=== PATIENT | male | born 2005 | race Caucasian/White ===

== ENCOUNTER 2025-01-19 20:04 | Emergency (ER) | payer OTHER, SELFPAY ==
[2025-01-19 20:27] VITALS: BP 117/63; PULSE 61; TEMP 37.1; O2SAT 97; BMI 28.1
--- OUTSIDE RECORDS SUMMARY | 2025-01-19 21:07 | XMS_ITS | Clinical Summary ---
Author Organization [facility] Address [address] [place] [id number] Care Team Providers Care Farmer [employer] Name Role Phone EidLatrell Oleg Primary Care Provider [phone] Allergies No known active allergies Medications ibuprofen (MOTRIN) 600 mg tablet Take 1 tablet by mouth every 6 hours as needed for pain. 15 tablet 12/24/2020 Active Active Problems Problem Noted Date Diagnosed Date Warts 09/26/2013 Social History Tobacco Use Types Packs/Day Years Used Date Smoking Tobacco: Never Alcohol Use Standard Drinks/Week Comments Not Asked 0 (1 standard drink = 0.6 oz pur e alcohol) Area Deprivation Index Answer Date Akash rded National Score (1-100), lower number is lower ri sk Not on file 05/01/2020 State Score (1-10), lower number is lower risk N ot on file 05/01/2020 Data from: https://www.neighborhoodatlas.medicine.[facility].edu/. Last address used for calculation Not on file 05/01/2020 Sex and Gender Information Value Date Recorded Sex Assigned at Not on file Legal Sex Male 10:00 AM EST Gender Identity Not on file Sexual Orientation Not on file Last Filed Vital Signs Vital Sign Reading Time Taken Comments Blood Pressure 117/78 12/24/2020 4:48 PM EDT Pulse 79 12/24/2020 4:48 PM EDT Temperature 36.3 C (97.4 F) 12/24/2020 3:47 PM EDT Respiratory Rate 20 12/24/2020 4:48 PM EDT Oxygen Saturation 97% 12/24/2020 4:48 PM EDT Inhaled Oxygen Concentration - - Weight 94.8 kg (208 lb 15.9 oz) 12/24/2020 3:47 PM EDT Height 172.7 cm (5' 8 ) 12/24/2020 3:47 PM EDT Body Mass Index 31.78 12/24/2020 3:47 PM EDT Plan of Treatment Health Maintenance Due Date Last Done Comments Peds To Adult Transition Ini tial Discussion 2015 Peds To Adult Transition Rosaura ual Assessment 2017 Meningococcal B Vaccine (2 o f 2 - Bexsero SCDM 2-dose series) 03/28/2020 09/26/2019 Anxiety Screening 2021 Depression Screening 2021 HIV Screening 2021 Hepatitis C Screening 2021 DTaP,Tdap,Td Vaccine (7 - Td or Tdap) 12/27/2024 12/27/2014, 01/20/2007, 10/28/2005, Additional history exists Influenza Vaccine (#1) 2025 Hepatitis B Vaccine Completed 2003, 2003, 2003 HPV Vaccine Completed 07/02/2015, 12/2014, 12/27/2014 Insurance BLUE CARD PPO OOS Member Subscriber Plan / Payer (Ef fective 2020-Present) Name:KRYS OLVERA Relation to Subscriber:Child Name:Anuradha Louis Date of :1979 (Home) Address: [address] [place] [address] Payer ID:[id number] (NAIC) Type:PPO Address: [facility] [id number] MEDICAID Care Teams Farmer D[employer] Crops Relationship Specialty Start Date End Date Latrell Eid PCP - General Pediatrics 12/21/12
--- OUTSIDE RECORDS SUMMARY | 2025-01-19 21:07 | XMS_ITS | Clinical Summary ---
Author Organization [facility] Address [address], [address] [place] [address] Care Team Providers Care Family Life Counselor Name Role Phone Latrell Eid MD Primary Care Provider [phone] Allergies No known active allergies Medications ibuprofen (ADVIL;MOTRIN) 600 MG tabletIndications: Injury of right thumb, initial encounter,Sprain of right thumb, unspecified site of finger, initial encounter Take 1 tablet by mouth every 6 hours as needed for Pain 20 tablet 01/04/20 20 Active Additional Information Patient not taking.Reported on 02/08/2023 brompheniramine-ps eudoephedrine-DM 2-30-10 MG/5ML syrupIndications:V iral URI Take 5 mLs by mouth 4 times daily as needed for Congestion or Cough 200 mL 02/09/20 23 Active Additional Information Patient not taking.Reported on 04/06/2023 ondansetron (ZOFRAN-ODT) 4 MG disintegrating tablet Take 1 tablet by mouth 3 times daily as needed for Nausea or Vomiting 20 tablet 04/06/20 23 Active ketorolac (TORADOL) 10 MG tablet Take 1 tablet by mouth every 6 hours as needed for Pain 20 tablet 04/06/20 23 Active Active Problems No known active problems Immunizations Immunization Administration Dates Next Due COVID-19, MODERNA XI knowles r, Primary or Immunocompromised, (age 12y+), IM, 100 mcg/0.5mL 05/22/2021,04/24/2021 DTaP vaccine 01/20/2007, 6,2003,2003,2003 DTaP, INFANRIX, (age 6w-6y), IM, 0.5mL 03/06/2005 HPV, GARDASIL 9, (age 9y-45y ), IM, 0.5mL 07/02/2015,02/28/2015,12/27/2014 Hep A, HAVRIX, VAQTA, (age 1 2m-18y), IM, 0.5mL 10/02/2011,07/17/2010 Hep B, ENGERIX-B, RECOMBIVAX -HB, (age - 19y), IM, 0.5mL 2003 Hep B/Hib (Comvax) 2003,2003 Hib PRP-OMP, PEDVAXHIB, (age 2m-6y, Adlt Risk), IM, 0.5mL 2003,2003 Hib vaccine 02/09/2004,2003 Poliovirus, IPOL, (age 6w+), SC/IM, 0.5mL 03/02/2008,2003,2003,2002 Social History Tobacco Use Types Packs/Day Years Used Date Smoking Tobacco: Never Smokeless Tobacco: Never Tobacco Cessation:Counseling Given: Yes Alcohol Use Standard Drinks/Week Comments Yes 0 (1 standard drink = 0.6 oz pur e alcohol) OCCASIONALLY AUDIT-C Answer Date Recorded Q1: How often do you have a drink containing alcohol? Never 04/06/2023 Q2: How many drinks containi ng alcohol do you have on a typical day when you are drinking? Patient does not drink Q3: How often do you have si x or more drinks on one occasion? Never 04/06/2023 Overall Financial Resource Strain (CARDIA) Answe r Date Recorded How hard is it for you to pa y for the very basics like food, housing, medical care, and heating? Not hard at all 02/08/2023 PHQ-2 Answer Date Recorded PHQ-9 Total Score 0 02/08/2023 Hunger Vital Sign Answer Date Recorded Within the past 12 months, y ou worried that your food would run out before you got the money to buy more. Never true 02/09/20 23 Within the past 12 months, t he food you bought just didn't last and you didn't have money to get more. Never true 02/08/2023 PRAPARE - Transportation Answer Date Re corded Lack of Transportation (Medical) Not on file 02/08/2023 In the past 12 months, has l ack of transportation kept you from meetings, work, or from getting things needed for daily living? No 02/08/2023 Housing Stability Vital Sign Answer Masoud e Recorded Unable to Pay for Housing in the Last Year Not o n file 02/08/2023 Number of Places Lived in the Last Year Not on f ile 02/08/2023 In the last 12 months, was t here a time when you did not have a steady place to sleep or slept in a [place] [facility] [place] (including now)? No 02/08/2023 Food Insecurity Answer Date Recorded Within the past 12 months, y ou worried that your food would run out before you got the money to buy more. 1 02/08/2023 Within the past 12 months, t he food you bought just didn't last and you didn't have money to get more. 1 02/08/2023 Interpersonal Safety Domain Source: IP Abuse Scr eening Answer Date Recorded Read-Only, Retired: Physical Abuse Denies 04/06/2023 Read-Only, Retired: Verbal Abuse Denies 04/06/2023 Read-Only, Retired: Emotional abuse Denies 04/06/2023 Read-Only, Retired: Financial Abuse Denies 04/06/2023 Read-Only, Retired: Sexual abuse Denies 04/06/2023 Sex and Gender Information Value Date Recorded Sex Assigned at Not on file Legal Sex Male 3:59 AM EST Gender Identity Not on file Sexual Orientation Not on file Last Filed Vital Signs Vital Sign Reading Time Taken Comments Blood Pressure 135/76 04/06/2023 7:27 PM EST Pulse 94 04/06/2023 7:27 PM EST Temperature 37.9 C (100.3 F) 04/06/2023 7:27 PM EST Respiratory Rate 17 04/06/2023 7:27 PM EST Oxygen Saturation 98% 04/06/2023 7:27 PM EST Inhaled Oxygen Concentration - - Weight 102.1 kg (225 lb) 04/06/2023 7:49 PM EST Height 175.3 cm (5' 9 ) 04/06/2023 7:49 PM EST Body Mass Index 33.23 04/06/2023 7:49 PM EST Plan of Treatment Health Maintenance Due Date Last Done Comments Hepatitis C screen 2021 COVID-19 Vaccine ( season) 2024 05/22/2021, 04/24/2021 Depression Screen 02/09/2024 02/08/2023 Flu vaccine (#1) 12/22/2024 04/03/2009 DTaP/Tdap/Td vaccine (7 - Td or Tdap) 12/27/2024 12/27/2014, 01/20/2007, 10/28/2005, Additional history exists Hepatitis B vaccine Completed 2003, 2003, 2003 Hib vaccine Completed 02/09/2004, 07/23, 2003, Additional history exists Pneumococcal 0-49 years Vaccine Aged Out 02/09/2004, 2003, 2003 No longer eligible based on patient's age to complete this topic Varicella vaccine Completed 10/28/2005, 04/07/2004 Measles,Mumps,Rubella (MMR) vaccine Discontinued 01/20/2007, 02/09/2004 Polio vaccine Completed 03/02/2008, 07/23, 2003, Additional history exists Hepatitis A vaccine Completed 10/02/2011, 1 HPV vaccine Completed 07/02/2015, 12/2014, 12/27/2014 HIV screen Completed 09/26/2019, 08/05/2017 Meningococcal (ACWY) vaccine Completed 09/26/2019, 12/27/2014 Meningococcal B vaccine Completed 12/25/2019, 09/25 Procedures Procedure Name Priority Date/Time Associated Diagnosis Comments HIV-1,2 COMBO AG/AB BY IZABEL REFLEXIVE PANEL Routine 09/26/2019 12:12 PM EDT from Last 3 Months or Most Recently Relevant to Health Maintenance Results * HIV-1,2 Combo Ag/Ab By IZABEL Reflexive Panel (09/26/2019 12:12 PM EDT) HIV 1,2 Combo Antigen/Antibod y Negative Negative 09/27/2019 7:30 PM EDT [facility] Comment: The specimen was non-reactive for HIV-1 and HIV-2 antibodies, and p24 antigen. Based on this non-reactive screen result, further reflexive testing was not indicated and was, therefore, not performed INTERPRETIVE INFORMATION: HIV-1,2 Combo Ag/Ab EIA, w/Reflex This assay should not be used for blood donor screening, associated re-entry protocols, or for screening Human Cells, Tissues, and Cellular and Tissue-Based Products (HCT/P). Performed by [facility], [address] [place] [id number] [email or web address], Oli Clifton MD, Lab. Director 09/26/2019 12:1 2 PM EDT 09/26/2019 1:15 PM EDT us Latrell Eid MD IMMUNOLOGY ORDERABLES Final Re sult [facility] [address] [place], [place] [address] [phone] [facility] [address] [place], [place] [address] [phone] from Last 3 Months or Most Recently Relevant to Health Maintenance Insurance BCBS OUT OF STATE Care Teams Family Life Counselor Relationship Specialty Start Date End Date Latrell Eid MD PCP - General 04/15/15
--- OUTSIDE RECORDS SUMMARY | 2025-01-19 21:07 | XMS_ITS | Encounter Summary ---
Author Organization [facility] Address [address] [place] [address] Phone Care Team Providers Care Staff Training And Development Manager Name Role Phone Latrell Eid MD Primary Care Provider [phone] Encounter Details Date Type Department Care Team (Late st Contact Info) Description 01/24/2023 Patient Risk Score ACO Care Management [address] [place] [address] Social History Tobacco Use Types Packs/Day Years Used Date Smoking Tobacco: Never Assessed Sex and Gender Information Value Date Recorded Sex Assigned at Not on file Legal Sex Male 9:30 PM EST Gender Identity Not on file Sexual Orientation Not on file documented as of this encounter Plan of Treatment Not on file documented as of this encounter Visit Diagnoses Not on filedocumented in this encounter Care Teams Staff Training And Development Manager Relationship Specialty Start Date End Date Latrell Eid MD PCP - General 10/06/11 documented as of this encounter
--- OUTSIDE RECORDS SUMMARY | 2025-01-19 21:07 | XMS_ITS | Encounter Summary ---
Author Organization [facility] Address [address] [place] [address] Phone Care Team Providers Care Supervisor [employer] Name Role Phone Latrell Eid MD Primary Care Provider [phone] Encounter Details Date Type Department Care Team (Late st Contact Info) Description 11/23/2022 Patient Risk Score ACO Care Management [address] [place] [address] Social History Tobacco Use Types [...] on filedocumented in this encounter Care Teams Supervisor [employer] Relationship Specialty Start Date End Date Latrell Eid MD PCP - General 10/06/11 documented as of this encounter
--- OUTSIDE RECORDS SUMMARY | 2025-01-19 21:07 | XMS_ITS | Clinical Summary ---
Author Organization [facility] Address [address] [place] [address] Phone Care Team Providers Care Boiler Tenders Supervisor Name Role Phone Latrell Eid MD Primary Care Provider [phone] Social History Tobacco Use Types Packs/Day Years Used Date Smoking Tobacco: Never Assessed Sex and Gender Information Value Date Recorded Sex Assigned at Not on file Legal Sex Male 9:30 PM EST Gender Identity Not on file Sexual Orientation Not on file Last Filed Vital Signs Vital Sign Reading Time Taken Comments Blood Pressure 125/70 12/25/2019 9:04 AM EDT Pulse 80 09/26/2019 10:15 AM EDT Temperature - - Respiratory Rate - - Oxygen Saturation - - Inhaled Oxygen Concentration - - Weight 101 kg (222 lb 12.8 oz) 12/25/2019 9:04 A M EDT Height 173.2 cm (5' 8.2 ) 12/25/2019 9:04 AM EDT Body Mass Index 33.68 12/25/2019 9:04 AM EDT Plan of Treatment Health Maintenance Due Date Last Done Comments HIV Screening 2003 Lipid Panel 2003 Yearly Adult Physical 2003 IPV Vaccines (4 of 4 - 4-dose series) 2007 2003, 2003, 2003 HPV Vaccines (1 - Male 3-dose series) 2018 Meningococcal B Vaccine (1 of 2 - Standard) 2019 Hepatitis C Screening 2021 COVID-19 Vaccine ( - season) 2024 DTaP/Tdap/Td Vaccines (7 - Td or Tdap) 12/27/2024 12/27/2014, 01/20/2007, 10/28/2005, Additional history exists Influenza Vaccine (#1) 2025 Zoster Vaccines (1 of 2) 2053 10/28/2005, 03/24 Hepatitis B Vaccines Completed 2003, 2003, 2003 HIB Vaccines Completed 02/09/2004, 07/23, 2003, Additional history exists Pneumococcal Vaccine: Pediatrics and At-Risk Adult Patients Aged Out 02/09/2004, 2003, 2003 No longer eligible based on patient's age to complete this topic MMR Vaccines Completed 01/20/2007, 02/09/2004 Hepatitis A Vaccines Completed 10/02/2011, 07/17/19 11 Meningococcal Vaccine Completed 09/26/2019, 015 Rotavirus Vaccines Aged Out No longer eligible based on patient's age to complete this topic Care Teams Boiler Tenders Supervisor Relationship Specialty Start Date End Date Latrell Eid MD PCP - General 10/06/11
--- NOTE | 2025-01-19 21:32 | ED_ITS ---
HPI HPI - Back Pain/Injury General Chief Complaint: Back Pain/Injury Stated Complaint: BACK PAIN Time Seen by Provider: 01/19/25 21:29 Source: patient Mode of arrival: walk-in Limitations: no limitations History of Present Illness HPI Narrative: acute pain of mid back. 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 Hurts to move. States when he stands feels like his legs want to give out due to the pain. No numbness or pain or his legs. No associated nausea. No neck pain, dyspnea or abdominal pain Related Data Home Medications ?Medication ?Instructions ?Recorded ?Confirmed escitalopram oxalate 10 mg tablet 10 mg PO DAILY 01/1901/19/25 (Lexapro) lisdexamfetamine 40 mg capsule 40 mg PO DAILY 01/19/25 01/19/25 (Vyvanse) Allergies Allergy/AdvReac Type Severity Reaction Status Date / Time No Known Drug Allergies Allergy Verified 01/19/25 20:33 Opioid HPI Opioid Management Most Recent Opioid Data: 2 Last Pain Scale 9 01/19/25, 20:27 Review of Systems 2 ROS0 Status of ROS 10 or more systems reviewed and unremark able except as noted in history and below PFSH PFSH Social History Little interest or pleasure in doing things: not at all Feeling down, depressed, or hopeless: not at all Exam Constitutional Vital Signs, click to edit/add: Last Vital Signs Temp 98.7 F 01/19/25 20:27 Pulse 58 L 01/19/25 23:44 Resp 16 01/19/25 23:44 BP 143/89 H 01/19/25 23:44 Pulse Ox 97 01/19/25 23:44 O2 Del Method Room Air 01/19/25 23:44 Common normals: no apparent distress, average body habitus, oriented x3, no limitations, healthy appearing, alert and well nourished [facility] Common normals: normocephalic and head/scalp atraumatic Eye Common normals: PERRL and EOMs intact bilaterally Respiratory Common normals: normal respiratory effort, no retractions, no use of accessory muscles and clear to auscultation bilaterally Cardio Common normals: regular rate, regular rhythm, S1 normal heart sound and S2 normal heart sound GI Common normals: Normal to inspection, nondistended, normoactive bowel sounds present, soft to palpation and non-tender Back & Pelvis Back image (male): 2 1. tenderness left para thoracic Extremity Common normals: normal to inspection and full ROM Neuro Common normals: oriented x3, CN's II-XII intact bilaterally and moves all extremities Psych Appearance: grossly normal Course Vital Signs Vital signs: Vital Signs Temperature 98.7 F 01/19/25 20:27 Pulse Rate 61 01/19/25 20:27 Respiratory Rate 16 01/19/25 20:27 Blood Pressure 117/63 01/19/25 20:27 Pulse Oximetry 97 01/19/25 20:27 Oxygen Delivery Method Room Air 01/19/25 20:27 Temperature 98.7 F 01/19/25 20:27 Pulse Rate 58 L 01/19/25 23:44 Respiratory Rate 16 01/19/25 23:44 Blood Pressure 143/89 H 01/19/25 23:44 Pulse Oximetry 97 01/19/25 23:44 Oxygen Delivery Method Room Air 01/19/25 23:44 MDM - Back Pain/Injury MDM Narrative Medical decision making narrative: 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 Has pain of his upper back. Pain worsens when he tries to sit up from supine position. Exam with tenderness of thoracic paravertebral musculature. V-spine nontender. Clinically he has acute muscular strain/spasm. Medicated in the ER and was able to sit up and walk with tolerable pain at discharge. Discharged with a prescription for baclofen Discharge Plan Discharge Chief Complaint: Back Pain/Injury Clinical Impression: Strain of muscle and tendon of back wall of thorax, initial encounter Patient Disposition: Home, Self-Care Condition: Good Mode of Transportation: Private Vehicle Prescriptions / Home Meds: No Action lisdexamfetamine [Vyvanse] 40 mg capsule 40 mg PO DAILY escitalopram oxalate [Lexapro] 10 mg tablet 10 mg PO DAILY Print Language: Barbadian Instructions: Thoracic Back Strain (ED) Additional Instructions: follow up with your doctor early next week Referrals: Physician,Non-Staff, MD [Primary Care Provider] - 1 week Discharge Date/Time: 01/20/25 00:29
[2025-01-19] MEDS: ORPHENADRINE 60 MG/2 ML VIAL IV (21:49)
[2025-01-19] MEDS: METHYLPREDNISOLONE SOD SUCC PF 125 MG/2 ML VIAL IVP (21:49)
[2025-01-19] MEDS: MAGNESIUM SULFATE IN WATER 2 GM/50 ML PREMIX IV (21:50)
[2025-01-19] MEDS: 0.9 % SODIUM CHLORIDE 250 ML 50 ML IV (22:35)
[2025-01-19] MEDS: DIAZEPAM 10 MG/2 ML SYRINGE 5 MG IV (23:05)
[2025-01-19 23:15] VITALS: BP 143/89; PULSE 62; O2SAT 98
[2025-01-19 23:34] VITALS: BP 116/75; PULSE 57; O2SAT 94
[2025-01-19 23:44] VITALS: BP 143/89; PULSE 58; O2SAT 97
[2025-01-20] MEDS: BACLOFEN 10 MG TABLET PO (00:23)
== END 2025-01-20 00:29 | disposition home or self-care (01) ==
PROVIDERS: Emergency Provider Internal Medicine
DX: S29.012A Strain of muscle and tendon of back wall of thorax, initial encounter (principal); X50.0XXA Overexertion from strenuous movement or load, initial encounter
CPT/HCPCS: 96365; 96375; 99284; J2360; J2919; J3360; J3475